=== PATIENT | male | born 1995 | race African-American/Black ===

== ENCOUNTER 2017-02-07 15:18 | Emergency (ER) | payer SELFPAY ==
[2017-02-07] MEDS ORDERED: NORMAL SALINE 1000 ML 1,000 ML IV ONE ×2 (15:44→16:53)
[2017-02-07] MEDS ORDERED: MECLIZINE HCL 25 MG TABLET PO ONE (15:45)
--- NOTE | 2017-02-07 15:46 | ER Document Report ---
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 originally from [place] is here for several months in [place] working on an assignment. Today while working the grill in the kitchen he became hot and dizzy which she describes as spinning. His boss told him to take a break so he went out to his car. He does not remember what happens after that until the EMS medic was talking to him. The girlfriend said that someone found him slumped shelter out of the car door asking what happened what happened. Patient does not remember what happened to him in the car. He smokes cigarettes and marijuana last week. He had 4 shots of alcohol last night. No cardiac history no hypertension or diabetes. Denies drug use except for marijuana. EMS kept emphasizing that the patient's eyes were dilated in that he thought he was on heroin. There was no drug paraphernalia around the car or in the car. 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 Lives with: Spouse/Significant other - Girlfriend Family History: Reviewed & Not Pertinent - Medical History Medical History: Negative Surgical Hx: Negative Review of Systems - Review of Systems Constitutional: No symptoms reported EENT: No symptoms reported Cardiovascular: No symptoms reported Respiratory: No symptoms reported Gastrointestinal: No symptoms reported Genitourinary: No symptoms reported Male Genitourinary: No symptoms reported Musculoskeletal: No symptoms reported Skin: No symptoms reported Hematologic/Lymphatic: No symptoms reported Neurological/Psychological: See HPI Physical Exam - Vital signs Vitals: Resp BP Pulse Ox 9 L 124/80 100 02/07/17 16:02 02/07/17 16:02 02/07/17 16:02 Interpretation: Normal - General General appearance: Other - keeping eyes closed which he states decreases the sensation of vertigo Notes: Pale - HEENT Head: Normocephalic, Atraumatic Eyes: Normal Conjunctiva: Normal Extraocular movements intact: Yes Pupils: PERRL. No: Dilated, Pinpoint Mucous membranes: Dry Pharynx: Normal Neck: Supple. No: Lymphadenopathy - Respiratory Respiratory status: No respiratory distress Chest status: Nontender Breath sounds: Normal Chest palpation: Normal - Cardiovascular Rhythm: Regular Heart sounds: Normal auscultation Murmur: No - Abdominal Inspection: Normal Distension: No distension Bowel sounds: Normal Tenderness: Nontender. No: Tender Organomegaly: No organomegaly. No: Hepatomegaly, Splenomegaly - Back Back: Normal, Nontender. No: Tender - Extremities General upper extremity: Normal inspection, Nontender, Normal color, Normal ROM , Normal temperature General lower extremity: Normal inspection, Nontender, Normal color, Normal ROM , Normal temperature, Normal weight bearing. No: Leah's sign - Neurological Neuro grossly intact: Yes Cognition: Inattentive - at first, then started to be more alert while I was in the room with him during history and PE, Other - amnesia to what happened Orientation: AAOx4 [place] Coma Scale Eye Opening: Spontaneous [place] Coma Scale Verbal: Oriented - amnesia to the event [place] Coma Scale Motor: Obeys Commands [place] Coma Scale Total: 15 Speech: Normal Motor strength normal: LUE, RUE, LLE, RLE Sensory: Normal - Psychological Associated symptoms: Normal affect, Normal mood - Skin Skin Temperature: Warm Skin Moisture: Dry Skin Color: Normal Skin irregularity: negative: Rash Course - Re-evaluation Re-evalutation: 02/07/17 16:[address] Gomez who is willing to see the patient in the office tomorrow I asked him about the P-wave configuration change with inspiration and expiration he said that can be a normal variant to go into a tello rhythm. The pt feels better, only mild vertigo, BP and pulse OK while seated. 02/07/17 18:03 Patient states the vertigo sensation is almost completely gone and he does not want a prescription medication for it. I explained to him about his follow-up with Dr. Gomez tomorrow and to call first thing in the morning to find out when he needs to go there and I will give him copies of lab work and EKG. 02/07/17 18:03 - Vital Signs Vital signs: Temp Pulse Resp BP Pulse Ox 18 119/77 100 02/07/17 16:41 02/07/17 16:41 02/07/17 16:41 - Laboratory Result Diagrams: 02/07/17 15:42 02/07/17 16:18 Laboratory results interpreted by me: 02/07/17 02/07/17 02/07/17 15:42 16:18 17:05 RBC 4.21 L Chloride 109 H Creatine Kinase 210 H Urine Urobilinogen 2.0 H Discharge - Discharge Clinical Impression: Sinus arrhythmia, First degree AV block Syncope Qualifiers: Syncope type: unspecified Qualified Code(s): R55 - Syncope and collapse Condition: Good Disposition: HOME, SELF-CARE Instructions: Meclizine ([facility]), Syncopal Episode ([facility]), Vertigo ([facility]) Additional Instructions: to er if symptoms recur call dr. gomez in the morning for follow up appt tomorrow plenty of fluids Please complete the patient satisfaction survey if you get one, and return it.. If you do not receive a survey, then you can go to the [facility] website, [email or web address] and place your comments about your very good care. Thank you very much. It was a pleasure being your medical provider today. Forms: Return to Work Referrals: RADHA GOMEZ MD [ACTIVE STAFF] - Follow up tomorrow (call in am for appt tomorrow)
[2017-02-07 15:57] LABS: ABSOLUTE BASOPHILS # (AUTO) 0.1 10^3/uL (0.0-0.2); ABSOLUTE EOSINOPHILS # (AUTO) 0.1 10^3/uL (0.0-0.6); ABSOLUTE LYMPHOCYTES (AUTO) 1.2 10^3/uL (0.5-4.7); ABSOLUTE MONOCYTES (AUTO) 0.7 10^3/uL (0.1-1.4); ABSOLUTE NEUT (AUTO) 3.9 10^3/uL (1.7-8.2); BASOPHILS % (AUTO) 1.3 % (0-2); EOSINOPHILS % (AUTO) 1.9 % (0-6); HEMATOCRIT 39.6 % (37.9-51.0); HEMOGLOBIN 14.1 g/dL (13.5-17.0); HGB HCT DIFFERENCE 2.7; LYMPHOCYTES % (AUTO) 19.7 % (13-45); MEAN CORPUSCULAR HEMOGLOBIN 33.4 pg (27.0-33.4); MEAN CORPUSCULAR HGB CONC 35.5 g/dL (32.0-36.0); MEAN CORPUSCULAR VOLUME 94 fl (80-97); MONOCYTES % (AUTO) 11.7 % (3-13); RED BLOOD COUNT 4.21 10^6/uL (4.35-5.55); SEGMENTED NEUTROPHILS % (AUTO) 65.4 % (42-78)
--- NOTE | 2017-02-07 16:26 | EKG REPORT ---
SEVERITY:- ABNORMAL ECG - SINUS ARRHYTHMIA. FIRST DEGREE AVB : Confirmed by: Simone Mancuso MD 07-Feb-2017 16:25:29
[2017-02-07 16:50] LABS: ALANINE AMINOTRANSFERASE 63 U/L (21-72); ALBUMIN 4.2 g/dL (3.5-5.0); ALKALINE PHOSPHATASE 78 U/L (38-126); ANION GAP 10 (5-19); ASPARTATE AMINO TRANSFERASE 25 U/L (17-59); BILIRUBIN,DIRECT 0.4 mg/dL (0.0-0.4); BILIRUBIN,TOTAL 0.7 mg/dL (0.2-1.3); BLOOD UREA NITROGEN 12 mg/dL (7-20); CALCIUM 9.5 mg/dL (8.4-10.2); CARBON DIOXIDE 22 mmol/L (22-30); CHLORIDE 109 mmol/L (98-107); CREATINE KINASE 210 U/L (55-170); CREATININE RESULT 0.83 mg/dL (0.52-1.25); GLUCOSE 87 mg/dL (75-110); MAGNESIUM 1.7 mg/dL (1.6-2.3); POTASSIUM 4.1 mmol/L (3.6-5.0); SODIUM 141.2 mmol/L (137-145)
[2017-02-07 17:01] LABS: CREATINE KINASE MB 0.32 ng/mL (<4.55)
[2017-02-07 17:03] LABS: TROPONIN I < 0.012 ng/mL
[2017-02-07 17:24] LABS: APPEARANCE,URINE CLEAR; BILIRUBIN,URINE NEGATIVE (NEGATIVE); GLUCOSE, URINE NEGATIVE (NEGATIVE); KETONES,URINE NEGATIVE (NEGATIVE); LEUKOCYTE ESTERASE,URINE NEGATIVE (NEGATIVE); NITRITE,URINE NEGATIVE (NEGATIVE); PROTEIN,URINE NEGATIVE (NEGATIVE); URINE SPECIFIC GRAVITY 1.013
[2017-02-07 17:39] LABS: URINE BARBITURATES SCREEN NEGATIVE; URINE METHADONE SCREEN NEGATIVE; URINE OPIATES LOW NEGATIVE; URINE PHENCYCLIDINE SCREEN NEGATIVE
[2017-02-07 18:28] VITALS: BP 130/80
== END 2017-02-07 18:28 | disposition home or self-care (01) ==
LOC: ER 15:18
DX: I49.8 Other specified cardiac arrhythmias (principal); I44.0 Atrioventricular block, first degree; R55 Syncope and collapse; R42 Dizziness and giddiness; F17.210 Nicotine dependence, cigarettes, uncomplicated
CPT/HCPCS: 93005; 99284; 96360; 36415; 82553; 80307 ×2; 82550; 83735; 85025; 80053; 81001; 84484; 93010; J7030